=== PATIENT | male | born 1975 | race American Indian/Alaskan Native ===

== ENCOUNTER 2017-08-15 12:14 | Emergency (ER) | payer SELFPAY ==
[2017-08-15 13:15] VITALS: BP 170/111
--- NOTE | 2017-08-15 15:18 | Emergency Department Report ---
ED Upper Extremity Inj HPI - General Chief Complaint: Extremity Injury, Upper Stated Complaint: INFECTED FINGER Time Seen by Provider: 08/15/17 14:51 Source: patient Mode of arrival: Ambulatory Limitations: No Limitations - History of Present Illness Initial Comments: Patient is a 42-year-old [place] male who is presenting with an infection to the right middle finger at the nail bed. Patient states he is having some problems with the nail and he pulled it off and since then he's recently had some black necrosis to the nail bed and at the base of the finger just adjacent to the nail he sometimes has some bleeding. Patient states he's had no fever pain is a 6 out of 10 in severity and is constant and just at the nail bed. There is no radiation. He has full range of motion to the rest of his finger. - Related Data Previous Rx's Medication Instructions Recorded Last Taken Type Clindamycin [Clindamycin CAP] 300 mg PO Q8H #21 cap 08/15/17 Unknown Rx Ibuprofen [Motrin] 600 mg PO Q8H PRN #20 tablet 08/15/17 Unknown Rx traMADol [Ultram] 50 mg PO Q6HR PRN #10 tablet 08/15/17 Unknown Rx Allergies Allergy/AdvReac Type Severity Reaction Status Date / Time No Known Allergies Allergy Unverified 08/15/17 13:15 ED Review of Systems ROS: Stated complaint: INFECTED FINGER Other details as noted in HPI Comment: All other systems reviewed and negative ED Past Medical Hx - Past Medical History Previous Medical History?: No - Surgical History Past Surgical History?: No - Social History Smoking Status: Current Every Day Smoker Substance Use Type: Alcohol - Medications Home Medications: Home Medications Medication Instructions Recorded Confirmed Last Taken Type Clindamycin [Clindamycin CAP] 300 mg PO Q8H #21 cap 08/15/17 Unknown Rx Ibuprofen [Motrin] 600 mg PO Q8H PRN #20 tablet 08/15/17 Unknown Rx traMADol [Ultram] 50 mg PO Q6HR PRN #10 tablet 08/15/17 Unknown Rx ED Physical Exam - General Limitations: No Limitations General appearance: alert, in no apparent distress - Head Head exam: Present: atraumatic, normocephalic - Eye Eye exam: Present: normal appearance - ENT ENT exam: Present: mucous membranes moist - Neck Neck exam: Present: normal inspection - Respiratory Respiratory exam: Present: normal lung sounds bilaterally. Absent: respiratory distress - Cardiovascular Cardiovascular Exam: Present: regular rate, normal rhythm. Absent: systolic murmur, diastolic murmur, rubs, gallop - GI/Abdominal GI/Abdominal exam: Present: soft, normal bowel sounds - Rectal Rectal exam: Present: deferred - Extremities Exam Extremities exam: Present: normal inspection, other (patient's right middle finger instead of having a nail he has a area of necrosis is now black. He has some decreased sensation. There is a very minimal amount of swelling of the actual tissue of the finger just adjacent to the nail bed. There is no active drainage or bleeding at this time. The actual pad of the finger on the volar surface has intact sensation is good capillary refill in his necrosis appears to be just above the nail bed.) - Back Exam Back exam: Present: normal inspection - Neurological Exam Neurological exam: Present: alert, oriented X3 - Psychiatric Psychiatric exam: Present: normal affect, normal mood - Skin Skin exam: Present: warm, dry, intact, normal color. Absent: rash ED Course Vital Signs 08/15/17 13:13 Temperature 98 F Pulse Rate 87 Respiratory 18 Rate Blood Pressure 170/111 O2 Sat by Pulse 97 Oximetry Critical care attestation.: If time is entered above; I have spent that time in minutes in the direct care of this critically ill patient, excluding procedure time. ED Disposition Clinical Impression: Nail bed infection Disposition: [id number]-01 TO HOME OR SELFCARE Is pt being admited?: No Does the pt Need Aspirin: No Condition: Stable Prescriptions: Clindamycin [Clindamycin CAP] 300 mg PO Q8H #21 cap Ibuprofen [Motrin] 600 mg PO Q8H PRN #20 tablet PRN Reason: Pain traMADol [Ultram] 50 mg PO Q6HR PRN #10 tablet PRN Reason: Pain Referrals: PRIMARY CAREMD [Primary Care Provider] - 3-5 Days ONI SIMON MD [Staff Physician] - 3-5 Days
[2017-08-16] MEDS ORDERED: NEO SYNEPHRINE/NS Syringe(OR USE) IV ONE (08:32)
[2017-08-16] MEDS ORDERED: QUELICIN ONE (08:32)
[2017-08-16] MEDS ORDERED: NACL 0.9% 1000 ML 0 ML ONE (08:36)
== END 2017-08-15 15:34 | disposition home or self-care (01) ==
LOC: ED 12:14
DX: L03.011 Cellulitis of right finger (principal); F17.200 Nicotine dependence, unspecified, uncomplicated
CPT/HCPCS: 99282; J0330; J2370; J7030